=== PATIENT | male | born 1940 | race Caucasian/White ===

== ENCOUNTER 2021-12-03 15:04 | Emergency (ER) | payer MEDICARE, SELFPAY ==
[2021-12-03 15:05] VITALS: BP 102/68; PULSE 78; RESP 15; TEMP 36.4; O2SAT 98; BMI 31.4
--- NOTE | 2021-12-03 15:21 | EDS_ITS ---
HPI History of Present Illness Chief Complaint: Nosebleed Detail of Chief Complaint: Nosebleed started approximately noon today Informant: patient Narrative Narrative: Patient presents to the emergency department with complaint of a nosebleed that started approximately noon. Patient states that it spontaneously started to bleed. He is not on blood thinners. Patient states over the last several weeks he has had 2 other nosebleeds but he was able to control them on his own. Patient states that he went to urgent care today and they attempted silver nitrate cautery unsuccessful x3. Patient was referred to ER. Patient denies any trauma to his nose. Denies picking at his nose or sneezing. Prior similar symptoms: Yes PFSH PFSH Medical History no medical history Allergy/AdvReac Type Severity Reaction Status Date / Time latex Allergy Rash Verified 12/03/21 15:05 Social History Smoking Status: Unknown if ever smoked ROS ROS ED Constitutional Constitutional ED: Reports systems reviewed and no addt'l complaints, except as documented; Denies body ache(s), change in weight or chills Eyes Eyes: Denies acute decrease in peripheral vision, change in vision, double vision or loss of vision ENT ENT ED: Reports none and other Details: Nosebleed ; Denies ear pain, lip swelling, loss taste/smell, neck pain, otalgia or sore throat Cardiovascular Cardiovascular: Reports none; Denies abdominal pain, chest pain with activity, leg edema, lightheadedness, palpitations, rapid heart rate or syncope Respiratory/Chest Respiratory/Chest: Reports none; Denies change in mental status, dry cough, dyspnea, hemoptysis, shortness of breath at rest or shortness of breath with exertion Gastrointestinal Gastrointestinal: Reports none; Denies abdominal pain, change in stool character, diarrhea, hematemesis, hematochezia, melena, rectal bleeding or vomiting Genitourinary Genitourinary ED: Reports none; Denies abdominal discomfort, anuria, dysuria, genital pain or polyuria Musculoskeletal Musculoskeletal: Reports none; Denies arthralgias, back pain, difficulty walking, extremity pain, muscle weakness or myalgias Integumentary Reports none; Denies abscess or rash Neurologic Neurologic: Reports none; Denies abnormal gait, confusion, focal weakness, frequent falls, headache(s), loss of vision, numbness, paresthesias, radicular pain, vertigo or weakness Psychiatric Psychiatric: Reports systems reviewed and no addt'l complaints, except as docume nted and none; Denies behavioral changes, confusion, difficulty concentrating, hallucinations, suicidal ideation, tactile hallucinations or visual hallucinations Endocrine Endocrinology: Denies none, cold intolerance, excessive sweating, fatigue or heat intolerance Hematologic/Lymphatic Hematologic/Lymphatic: Reports none; Denies anemia, easy bleeding or easy bruising Allergic/Immunologic Allergic/Immunologic ED: Denies as per HPI, none, lip swelling, mouth swelling, throat swelling, tongue swelling or hives EXAM Physical Exam Const Vital Signs: 12/03/21 15:05 Temperature 97.6 F L Temperature Source Temporal Pulse Rate 78 Respiratory Rate 15 Blood Pressure 102/68 Blood Pressure Mean 79 Pulse Ox 98 Oxygen Delivery Method Room Air Positive well nourished and well developed General Appearance ED: well developed and NAD HEENT Reports TM's clear and moist mucous membranes HEENT Narrative: Patient presented to the emergency department with a clip on his nose. On inspection he does have some fresh blood noted in the nasal vault on the right on the floor the nasal vault. Patient has dried blood down the oropharynx and no active bleeding on oropharynx noted. I am unable to visualize exact location of the bleeding. normocephalic and atraumatic; Negative for trauma or tenderness Tympanic Membrane ED: Yes TM's clear Eyes PERRL and EOMs intact bilaterally General Eye ED: Negative for pale conjunctiva or scleral icterus Neck no lymphadenopathy, supple and no JVD General: Negative for tenderness Chest Wall inspection of chest normal and palpation of chest normal Chest: Negative for tenderness Resp normal respiratory effort and clear to auscultation bilaterally Effort and Inspection: Negative for respiratory distress or pain with movement Auscultation: Negative for rhonchi, wheezes or diminished lung sounds Cardio regular rate, regular rhythm, S1 normal heart sound, S2 normal heart sound and no murmurs Peripheral Pulses: pulses 2+ throughout GI normal to inspection, nondistended, normoactive bowel sounds, soft to palpation, non-tender, non-distended and no masses Back/Spine no CVA tenderness and no thoracic nor lumbar tenderness Extremity normal to inspection General Extremety ED: Negative for edema General Extremity: Negative for edema Neuro oriented x3, CN's II-XII intact bilaterally, no sensory deficits noted and gait normal Sensorium / Orientation: awake, alert, oriented to person, oriented to place and oriented to time Motor Exam: strength 5/5 throughout and strength abnormal Psych mental status grossly normal Skin no rashes or lesions noted and no wounds MDM MDM MDM Narrative Medical decision making narrative: Initially I placed a cotton ball dipped in Michael solution into the right nasal vault and reapplied the clip. Patient was observed for about a half an hour and then the cotton was removed. There was no active bleeding. There was a small vessel on the anterior septum that I could see that I suspect was the culprit of the bleeding. This point we discussed possibly using silver nitrate cautery however this could potentially started bleeding again and at that point patient might require more intervention such as a Rhino Rocket. At this point he was observed in the department and he ambulated without difficulty had no further bleeding and he is comfortable going home. I will refer him to ENT for follow-up. Patient advised to hold constant pressure for 20 minutes of the bleeding recurs and if it does not stop to return to the emergency department. Discharge Plan Triage Chief Complaint: Nosebleed ED Provider: Kelby Nixon Dx/Rx/DC Orders Clinical Impression: Acute anterior epistaxis Instructions: Nosebleed Primary Care Provider: [facility] Referrals: Cullen Cifuentes MD [STAFF PHYSICIAN] - 2 Days for wound check [place], [place] [Primary Care Provider] - Disposition Disposition: Home, Self Care
== END 2021-12-03 16:16 | disposition home or self-care (01) ==
PROVIDERS: Emergency Provider Emergency Medicine; Visit Provider Emergency Medicine
DX: R04.0 Epistaxis (principal)
CPT/HCPCS: 99282

== ENCOUNTER 2022-11-01 10:28 | Emergency (ER) | payer OTHER, SELFPAY ==
[2022-11-01 10:29] VITALS: BP 179/90; PULSE 118; RESP 16; TEMP 36.8; O2SAT 97; BMI 32.1
--- NOTE | 2022-11-01 10:57 | EDS_ITS ---
HPI History of Present Illness Chief Complaint: Palpitations Narrative Narrative: 82-year-old male presenting with bradycardia. He is asymptomatic of it. He states he went to have cataract surgery and when they put him on the cardiac cath lab manager they noticed that his heart rate was in the 30s. He does not have any chest pain or shortness of breath. No fevers, chills, cough. He does not feel unwell. He is not lightheaded or dizzy. He has a previous pacemaker that was done at [facility]. He believes it is [employer]. [facility] Medical History History of prostate cancer Hx of completed stroke Hx of fracture of leg Home Medications ascorbic acid (vitamin C) 500 mg tablet (Vitamin C) 11/01/22 [History Last Taken Unknown] aspirin 81 mg tablet,delayed release mg 11/01/22 [History Last Taken Unknown] atorvastatin 40 mg tablet mg 11/01/22 [History Last Taken Unknown] carvedilol 3.125 mg tablet mg 11/01/22 [History Last Taken Unknown] clopidogrel 75 mg tablet mg 11/01/22 [History Last Taken Unknown] docusate sodium 100 mg capsule mg PO 11/01/22 [History Last Taken Unknown] furosemide 20 mg tablet mg 11/01/22 [History Last Taken Unknown] lisinopril 20 mg tablet mg 11/01/22 [History Last Taken Unknown] metformin 500 mg tablet mg 11/01/22 [History Last Taken Unknown] multivitamin tab 11/01/22 [History Last Taken Unknown] omeprazole 20 mg capsule,delayed release mg 11/01/22 [History Last Taken Unknown] potassium chloride 10 mEq tablet,extended release meq PO 11/01/22 [History Last Taken Unknown] terazosin 2 mg capsule mg 11/01/22 [History Last Taken Unknown] vitamin B complex cap 11/01/22 [History Last Taken Unknown] Allergy/AdvReac Type Severity Reaction Status Date / Time latex Allergy Rash Verified 11/01/22 10:32 Surgical History History of coronary artery bypass graft x 3 Social History Smoking Status: Former smoker ROS ROS ED Constitutional Constitutional ED: Denies chills, fever(s) or sweats Eyes Eyes: Denies blurry vision or change in vision ENT ENT ED: Denies ear pain or sore throat Cardiovascular Cardiovascular: Denies chest pain, palpitations or racing heartbeat Respiratory/Chest Respiratory/Chest: Denies cough, dyspnea or sputum Gastrointestinal Gastrointestinal: Denies abdominal pain, constipation, diarrhea, nausea or vomiting Genitourinary Genitourinary ED: Denies dysuria, hematuria or urinary frequency Musculoskeletal Musculoskeletal: Denies arthralgias, myalgias or neck pain Integumentary Denies abscess, Abrasions or rash Neurologic Neurologic: Denies headache(s), paresthesias or weakness Psychiatric Psychiatric: Denies anxiety, depression, suicidal ideation or suicidal thoughts Endocrine Endocrinology: Denies polydipsia or polyuria EXAM Physical Exam Const Vital Signs: 11/01/22 10:29 11/01/22 10:45 11/01/22 11:18 Temperature 98.2 F Temperature Source Temporal Pulse Rate 118 H Respiratory Rate 16 Respiratory Pattern Normal Blood Pressure 179/90 H Blood Pressure Mean 119 Pulse Ox 97 96 Oxygen Delivery Method Room Air Room Air 11/01/22 12:01 Temperature Temperature Source Pulse Rate 74 Respiratory Rate 16 Respiratory Pattern Blood Pressure 174/93 H Blood Pressure Mean Pulse Ox 98 Oxygen Delivery Method Positive well nourished General Appearance ED: NAD; Negative for pallor HEENT Reports moist mucous membranes and dry mucous membranes Mouth ED: Yes dry mucous membranes Mouth: dry mucous membranes Eyes PERRL and EOMs intact bilaterally Neck no lymphadenopathy and supple Chest Wall inspection of chest normal and palpation of chest normal Resp normal respiratory effort and clear to auscultation bilaterally Cardio Rate: bradycardia Rhythm: abnormal rhythm irregularly irregular GI normal to inspection, nondistended, normoactive bowel sounds Back/Spine no CVA tenderness Neuro oriented x3 and CN's II-XII intact bilaterally Sensorium / Orientation: alert Psych mental status grossly normal Skin no rashes or lesions noted and no wounds General Skin Exam: Negative for jaundice or pallor MDM MDM MDM Narrative Medical decision making narrative: Patient presenting with bradycardia. He is asymptomatic. His EKG on my interpretation shows a paced rhythm at a rate of 74 bpm with frequent PVCs. His pulse is irregular and bradycardic estimated to be between 50 to 60 bpm. Sally ki's device was interrogated by [employer]. I received a call from [employer] stating that his device was functioning completely normally. They stated that because of his pacing in the left ventricle this would make the monitor look abnormal. He stated that he did have a lot of PVCs as well. CBC, BMP unremarkable. High-sensitivity troponin is 21. Electrolytes within normal limits. Chest x-ray on my interpretation shows no acute cardiopulmonary process and radiology interprets this and agrees. Given his ultimately normal work-up and he is symptom-free I think he stable for discharge at this time. 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 Return precautions discussed. Impression: 1. History of pacemaker placement Lab Data Attestation: I reviewed the patient's lab results. Labs: Laboratory Results - last 24 hr 11/01/22 11/01/22 11:20 11:20 WBC 7.7 RBC 4.69 Hgb 14.1 Hct 43.4 MCV 92.5 MCH 30.1 MCHC 32.5 RDW Std Deviation 44.4 H RDW Coeff of Bulmaro 13.1 Plt Count 151 MPV 10.4 Immature Gran % (Auto) 0.400 Neut % (Auto) 56.1 Lymph % (Auto) 33.1 [place] % (Auto) 8.2 Eos % (Auto) 1.7 Baso % (Auto) 0.5 Absolute Neuts (auto) 4.3 Absolute Lymphs (auto) 2.53 Nucleated RBC % 0 Sodium 143 Potassium 4.0 Chloride 110 H Carbon Dioxide 31.0 Anion Gap 2 L BUN 19 H Creatinine 1.05 Estim Creat Clear Calc 57.77 Est GFR (MDRD) Af Amer 87 Est GFR (MDRD) Non-Af 72 BUN/Creatinine Ratio 18.1 Glucose 127 H Calcium 8.8 Magnesium 2.0 Troponin I High Sens 21 Radiography Diagnostic Testing: Clinical Impression(s) from Imaging Studies Chest X-Ray 11/01/22 10:59 IMPRESSION: Poor inspiration with some bibasilar atelectasis. Electronically Signed: Shailesh Ortega MD at 11:45 EST , Discharge Plan Triage Chief Complaint: Palpitations ED Provider: Kristian Issa Dx/Rx/DC Orders Instructions: ED Palpitations Prescriptions: No Action atorvastatin 40 mg tablet metformin 500 mg tablet lisinopril 20 mg tablet potassium chloride 10 mEq tablet extended release PO clopidogrel 75 mg tablet carvedilol 3.125 mg tablet ascorbic acid (vitamin C) [Vitamin C] 500 mg tablet terazosin 2 mg capsule omeprazole 20 mg capsule,delayed release(DR/EC) furosemide 20 mg tablet multivitamin Tablet aspirin 81 mg tablet,delayed release (DR/EC) Label Comments: Take 1 by mouth once a day docusate sodium 100 mg capsule PO vitamin B complex Capsule [facility] Referrals[facility] [Primary Care Provider] - Disposition Disposition: Home, Self Care Discharge Date/Time: 11/01/22 12:08
--- NOTE | 2022-11-01 10:59 | EKG12_ITS ---
Test Reason : ABNL RYTHUM Blood Pressure : / mmHG Vent. Rate : 074 BPM Atrial Rate : 063 BPM P-R Int : 196 ms QRS Dur : 100 ms QT Int : 446 ms P-R-T Axes : 024 -30 113 degrees QTc Int : 495 ms AV dual-paced rhythm with frequent Premature ventricular complexes Abnormal ECG Confirmed by OLIMPIA BABB, VANE ([id number]), market editor MAYA CHAIDEZ ([id number]) on 11/04/2022 1:02:40 PM Referred By: DEIRDRE Confirmed By:VANE DOAN MD
--- NOTE | 2022-11-01 10:59 | RAD_ITS ---
STUDY: X-RAY CHEST REASON FOR EXAM: Male, 82 years old. chest pain TECHNIQUE: Single AP portable view of the chest. COMPARISON: None. FINDINGS: Left subclavian AICD. Status post coronary artery bypass grafting. Poor inspiration with some bibasilar atelectasis. There is no demonstrated pleural abnormality. There is moderate cardiac enlargement. Normal mediastinum and joann. Normal visualized pulmonary arteries. Normal visualized aortic arch and descending thoracic aorta. Normal visualized thoracic spine. Normal visualized ribs, clavicles, and shoulders. There is no demonstrated abnormality of the visualized soft tissue structures of the upper abdomen. RAD/Chest 1 View (Portable) IMPRESSION: Poor inspiration with some bibasilar atelectasis. Electronically Signed: Shailesh Ortega MD at 11:45 EST ,
[2022-11-01 11:18] VITALS: O2SAT 96
[2022-11-01 11:25] LABS: Absolute Lymphocyte Count 2.53 X10^3/uL (0.83-4.51); Absolute Neutrophil Count 4.3 X10^3/uL (2.0-7.7); Basophil# 0.04 X10^3/uL; Basophil% 0.5 % (0-1); Eosinophil# 0.13 X10^3/uL; Eosinophils% 1.7 % (0-5); Hematocrit 43.4 % (40-54); Hemoglobin 14.1 g/dL (13.0-16.5); Lymphocyte # 2.53 X10^3/ul (0.83-4.51); Lymphocyte % 33.1 % (19-41); Mean Corp Hgb Conc 32.5 g/dL (32-36); Mean Corpuscular Hgb 30.1 pg (27.0-32.0); Mean Corpuscular Volume 92.5 fL (80-94); Mean Platelet Vol. 10.4 fl (6.2-12.0); Monocyte# 0.63 X10^3/uL; Monocyte% 8.2 % (0-10); NRBC Flagged by Analyzer 0 % (0-5); Neutrophil # 4.29 X10^3/uL (2.7-7.7); Neutrophil % 56.1 % (47-70); Platelet Count 151 K/mm3 (150-450); RBC Distribution Width CV 13.1 % (11.6-14.6); RBC Distribution Width SD 44.4 fl (35.1-43.9); Red Blood Count 4.69 M/mm3 (4.6-6.2); White Blood Count 7.7 K/mm3 (4.4-11.0)
[2022-11-01 11:45] LABS: Anion Gap 2 (5-15); BUN 19 mg/dL (7-18); BUN/Creat Ratio 18.1 RATIO (10-20); Calcium,Total 8.8 mg/dL (8.5-10.1); Chloride 110 mmol/L (98-107); Creatinine, Serum 1.05 mg/dL (0.70-1.30); EST Glomerular Filtration Rate 72 mL/min (>60); Est Glom Filt Rate - Afr Amer 87 mL/min (>60); Estimated Creatinine Clearance 57.77 ml/min; Glucose 127 mg/dL (74-106); Sodium Level 143 mmol/L (136-145); Troponin-I HS 21 pg/mL (3.0-78.0)
[2022-11-01 12:01] VITALS: BP 174/93; PULSE 74; RESP 16; O2SAT 98
== END 2022-11-01 12:08 | disposition home or self-care (01) ==
PROVIDERS: Emergency Provider Student in an Organized Health Care Education/Training Program; Visit Provider Student in an Organized Health Care Education/Training Program
DX: I49.3 Ventricular premature depolarization (principal); Z79.82 Long term (current) use of aspirin; Z79.02 Long term (current) use of antithrombotics/antiplatelets; Z79.899 Other long term (current) drug therapy; Z79.84 Long term (current) use of oral hypoglycemic drugs; Z87.891 Personal history of nicotine dependence; Z95.0 Presence of cardiac pacemaker; Z85.46 Personal history of malignant neoplasm of prostate
CPT/HCPCS: 71045; 80048; 83735; 84484; 85025; 93005; 99284

== ENCOUNTER 2024-12-10 14:23 | Emergency (ER) | payer OTHER, SELFPAY ==
[2024-12-10 14:24] VITALS: BP 195/102; PULSE 95; RESP 20; TEMP 36.1; O2SAT 95; BMI 32.0
[2024-12-10 14:25] VITALS: BP 195/102; PULSE 95; RESP 20; TEMP 36.1; O2SAT 95
--- NOTE | 2024-12-10 15:00 | ED.RN ---
PT STATES HE IS PEEING BLOOD, LARGE AMOUNT, IN HIS URINE, PT STATES THIS HAPPENED A FEW WEEKS AGO AND THEN QUIT AFTER A DAY OR SO. PT HAS HX OF PROSTATE CANCER. DENIES ANY PAIN AT THIS TIME.
--- NOTE | 2024-12-10 15:02 | ED.RN ---
PT UNABLE TO REMEBER HIS MEDICATION NAMES AND DOSES. PT STATES HE HAD A COPY ON HIS COMPUTER BUT DOES NOT KNOW WHERE IT IS.
--- NOTE | 2024-12-10 15:14 | EX.ED.DYSGE1 ---
HPI History of Present Illness Chief Complaint: Complaint [facility] Medical History History of prostate cancer Hx of completed stroke Hx of fracture of leg Home Medications ?Medication ?Instructions ?Recorded ?Last Taken ?Type ascorbic acid (vitamin C) 500 mg 11/01/22 Unknown History tablet (Vitamin C) aspirin 81 mg tablet,delayed mg 11/01/22 Unknown History release atorvastatin 40 mg tablet mg 11/01/22 Unknown History carvedilol 3.125 mg tablet mg 11/01/22 Unknown History clopidogrel 75 mg tablet mg 11/01/22 Unknown History docusate sodium 100 mg capsule mg PO 11/01/22 Unknown History furosemide 20 mg tablet mg 11/01/22 Unknown History lisinopril 20 mg tablet mg 11/01/22 Unknown History metformin 500 mg tablet mg 11/01/22 Unknown History multivitamin tab 11/01/22 Unknown History omeprazole 20 mg capsule,delayed mg 11/01/22 Unknown History release potassium chloride 10 mEq meq PO 11/01/22 Unknown History tablet,extended release terazosin 2 mg capsule mg 11/01/22 Unknown History vitamin B complex cap 11/01/22 Unknown History Allergy/AdvReac Type Severity Reaction Status Date / Time latex Allergy Rash Verified 12/10/24 15:01 Surgical History History of coronary artery bypass graft x 3 Social History Smoking Status: Former smoker EXAM Physical Exam Const Vital Signs: 12/10/24 14:24 12/10/24 14:25 12/10/24 15:25 Temperature 97 F L 97 F L 98.3 F Temperature Source Temporal Temporal Oral Pulse Rate 95 95 64 Respiratory Rate 20 H 20 H 17 Blood Pressure 195/102 H 195/102 H 112/86 H Blood Pressure Mean 133 133 94 Pulse Ox 95 95 96 Oxygen Delivery Method Room Air Room Air Room Air 12/10/24 16:00 12/10/24 16:23 Temperature 97.9 F Temperature Source Oral Pulse Rate 68 60 Respiratory Rate 16 17 Blood Pressure 142/89 H 137/74 H Blood Pressure Mean 106 95 Pulse Ox 96 96 Oxygen Delivery Method Room Air Room Air MDM MDM MDM Narrative Medical decision making narrative: HISTORY OF PRESENT ILLNESS: 84-year-old male presents with concern for hematuria. Notes this has been ongoing since night. States he is on a blood thinner but is unsure which one. REVIEW OF SYSTEMS: Pertinent positives: Hematuria Pertinent negatives: fatigue, dizziness, urinary retention PHYSICAL EXAM: Nursing triage notes reviewed, Vital signs reviewed Constitutional: please see mdm HENT: MMM, no mucosal pallor Eyes: Pupils equal round and reactive to light, Extraocular muscles intact Neck: No stridor, no JVD, full neck ROM Lungs: Clear to auscultation, No wheezing or rales. No increased work of breathing, no conversational dyspnea, no accessory muscle use, no nasal flaring. No respiratory distress noted Heart: Regular rate and rhythm, No murmurs, No rubs and No gallops, 2+ distal pulses (radial, femoral, posterior tibial) in all extremities Abdomen: Soft, there is no tenderness, rigidity, rebound or guarding, no obvious peritoneal signs, no palpable pulsatile abdominal masses, no auscultated abdominal bruit : No CVAT Extremities: No edema Neuro: No new focal neurological deficits, cranial nerves II through XII intact, 5/5 strength in all present extremities. Intact sensation to light touch in all present extremities, 2+ reflexes bilateral patella tendons. Skin: No rash or lesions noted, no pallor noted MEDICAL DECISION MAKING: Chief Complaint: Hematuria External records reviewed: [Reviewed medications which showed the patient on aspirin and Plavix Factors affecting care: Hypertension, type 2 diabetes, GERD Social determinants of health: none History obtained from others: none Consults: none [facility] Narrative: Patient was hypertensive, tachypneic, afebrile, exam unremarkable. I considered the following differential diagnosis: UTI, anemia, urinary retention ALL IMAGES (IF OBTAINED) HAVE BEEN PERSONALLY REVIEWED AND INTERPRETED BY MYSELF. CBC with no leukocytosis, no anemia, thrombocytopenia BMP without evidence of significant electrolyte abnormalities, no anion gap, no acute kidney injury. Urinalysis with hematuria, other signs of inflammation but no obvious bacterial infection. Will hold off antibiotics at this time as the patient does not have any clinical symptoms (dysuria, frequency, urgency). Will send urine for culture On reevaluation the patient's vital signs improved to a blood pressure 137/74, respirate 17 Patient has no sign of urinary retention, significant kidney damage, significant anemia. No indication for admission or emergent urologic consultation. Will give prompt outpatient urology follow-up and give strict return precautions including for signs of anemia, urinary retention etc. The patient and/or family, caregivers express understanding. The patient and/or family, caregivers agrees with the plan. Shared decision making: I will have a discussion with the patient and or visitors regarding risk/benefits of further testing or admission. They will be made aware of of the risk/benefits inherent in this decision they will be given the opportunity to voice understanding. Total critical care time today provided was at least 0 minutes. This excludes separately billable procedures. Critical care time (if documented) is secondary to the patient having high probability of clinically significant/life threatening deterioration in the patient's condition which required my urgent intervention. Impression: 1. Hematuria 2. History of prostate cancer Dispo: Discharge home This note was generated with [employer] dictation software. It may contain incorrect words, spelling, and punctuation that were not noted in review of the chart prior to signing. Lab Data Labs: Laboratory Results - last 24 hr 12/10/24 12/10/24 15:49 15:50 WBC 7.1 RBC 4.63 Hgb 14.0 Hct 42.8 MCV 92.4 MCH 30.2 MCHC 32.7 RDW Std Deviation 44.8 H RDW Coeff of Bulmaro 13.2 Plt Count 158 MPV 10.4 Immature Gran % (Auto) 0.100 Neut % (Auto) 59.1 Lymph % (Auto) 31.3 [place] % (Auto) 6.9 Eos % (Auto) 2.0 Baso % (Auto) 0.6 Absolute Neuts (auto) 4.2 Absolute Lymphs (auto) 2.21 Nucleated RBC % 0 Sodium 142 Potassium 3.9 Chloride 110 H Carbon Dioxide 27.0 Anion Gap 5 BUN 16 Creatinine 0.97 Estim Creat Clear Calc 69.65 Est GFR (MDRD) Af Amer 95 Est GFR (MDRD) Non-Af 78 BUN/Creatinine Ratio 16.5 Glucose 145 H Calcium 9.3 Urine Color Red Urine Clarity Turbid Urine pH 6.5 Ur Specific Dawn 1.015 Urine Protein 500 H Urine Glucose (UA) Normal Urine Ketones 15 H Urine Occult Blood 250 H Urine Nitrite Negative Urine Bilirubin 1 H Urine Urobilinogen Normal Ur Leukocyte Esterase 100 H Urine RBC > 100 SEEN Urine WBC 5-10 SEEN Ur Squamous Epith Cells 0 SEEN Urine Bacteria 1+ RBC Casts 0-5 SEEN Urine Mucus 0 SEEN Discharge Plan Triage Chief Complaint: Complaint ED Provider: Hesham Lazar Dx/Rx/DC Orders Instructions: ED Hematuria Prescriptions: No Action atorvastatin 40 mg tablet metformin 500 mg tablet lisinopril 20 mg tablet potassium chloride 10 mEq tablet extended release PO clopidogrel 75 mg tablet carvedilol 3.125 mg tablet ascorbic acid (vitamin C) [Vitamin C] 500 mg tablet terazosin 2 mg capsule omeprazole 20 mg capsule,delayed release(DR/EC) furosemide 20 mg tablet multivitamin Tablet aspirin 81 mg tablet,delayed release (DR/EC) Patient Comments: Take 1 by mouth once a day docusate sodium 100 mg capsule PO vitamin B complex Capsule [facility] Referrals: Preston Baird MD [Med Staff - Active Staff] - Activity Restrictions/Additional Instructions: Thank you for trusting us with your care today! Your labs are reassuring. Specifically no sign of anemia or kidney damage. Please take Tylenol (2 pills, 650 mg), ibuprofen (2 pills, 400 mg) every 6 hours as needed for pain and fever control. Please return to the emergency department if your symptoms change or worsen. Specifically develop urinary retention (not urinated for 6 to 12 hours) Please follow with Urology (Dr. Baird) for further outpatient evaluation and management. Print Language: [place] Disposition Disposition: Home, Self Care
[2024-12-10 15:25] VITALS: BP 112/86; PULSE 64; RESP 17; TEMP 36.8; O2SAT 96
--- NOTE | 2024-12-10 15:40 | EKG12_ITS ---
Test Reason : Blood Pressure : */* mmHG Vent. Rate : 64 BPM Atrial Rate : 64 BPM P-R Int : 196 ms QRS Dur : 106 ms QT Int : 454 ms P-R-T Axes : 4 -33 109 degrees QTcB Int : 468 ms AV dual-paced rhythm Abnormal ECG Confirmed by TYRELL BABB, FABRICIO ([id number]), editorial writer BARBI CORRALES ([id number]) on 12/14/2024 6:08:02 AM Referred By: Confirmed By: FABRICIO SANTILLAN MD
[2024-12-10 15:59] LABS: Mucous, Urine 0 SEEN /hpf (<or=2+); Squamous Epithelial Cells - UA 0 SEEN /hpf (0-5)
[2024-12-10 16:00] VITALS: BP 142/89; PULSE 68; RESP 16; TEMP 36.6; O2SAT 96
[2024-12-10 16:02] LABS: Color, Urine Red (Yellow); Glucose, Dipstick Normal (Normal); Ketone-Dipstick 15 mg/dl (Negative); Leukocyte Esterase-Dipstick 100 /ul (Negative); Nitrite-Dipstick Negative (Negative); Occult Blood-Urine 250 /ul (Negative); Protein-Dipstick 500 mg/dl (Negative); Specific Gravity, Urine 1.015 (1.002-1.030); Urine Clarity Turbid (Clear); Urine Urobilinogen Normal (Normal); Urine pH 6.5 (5.0 - 8.0)
[2024-12-10 16:10] LABS: Urine Bilirubin Dipstick 1 mg/dL (Negative)
[2024-12-10 16:14] LABS: Bacteria 1+ /hpf (None Seen); Red Blood Cells-Urine > 100 SEEN /hpf (0-5); Red Cell Cast 0-5 SEEN /lpf (None Seen); White Blood Cells 5-10 SEEN /hpf (0-5)
[2024-12-10 16:16] LABS: Absolute Lymphocyte Count 2.21 X10^3/uL (0.83-4.51); Absolute Neutrophil Count 4.2 X10^3/uL (2.0-7.7); Basophil# 0.04 X10^3/uL; Basophil% 0.6 % (0-1); Eosinophil# 0.14 X10^3/uL; Hematocrit 42.8 % (40-54); Lymphocyte # 2.21 X10^3/ul (0.83-4.51); Lymphocyte % 31.3 % (19-41); Mean Corp Hgb Conc 32.7 g/dL (32-36); Mean Corpuscular Hgb 30.2 pg (27.0-32.0); Mean Corpuscular Volume 92.4 fL (80-94); Mean Platelet Vol. 10.4 fl (6.2-12.0); Monocyte# 0.49 X10^3/uL; Monocyte% 6.9 % (0-10); NRBC Flagged by Analyzer 0 % (0-5); Neutrophil # 4.17 X10^3/uL (2.7-7.7); Neutrophil % 59.1 % (47-70); Platelet Count 158 K/mm3 (150-450); RBC Distribution Width CV 13.2 % (11.6-14.6); RBC Distribution Width SD 44.8 fl (35.1-43.9); Red Blood Count 4.63 M/mm3 (4.6-6.2); White Blood Count 7.1 K/mm3 (4.4-11.0)
[2024-12-10 16:23] VITALS: BP 137/74; PULSE 60; RESP 17; O2SAT 96
[2024-12-10 16:33] LABS: Anion Gap 5 (5-15); BUN 16 mg/dL (7-18); BUN/Creat Ratio 16.5 RATIO (10-20); Calcium,Total 9.3 mg/dL (8.5-10.1); Chloride 110 mmol/L (98-107); Creatinine, Serum 0.97 mg/dL (0.70-1.30); EST Glomerular Filtration Rate 78 mL/min (>60); Est Glom Filt Rate - Afr Amer 95 mL/min (>60); Estimated Creatinine Clearance 69.65 ml/min; Glucose 145 mg/dL (74-106); Potassium 3.9 mmol/L (3.5-5.1); Sodium Level 142 mmol/L (136-145)
[2024-12-10 17:05] VITALS: BP 144/75; PULSE 61; RESP 18; TEMP 36.8; O2SAT 97
== END 2024-12-10 17:09 | disposition home or self-care (01) ==
PROVIDERS: Emergency Provider Emergency Medicine; Visit Provider Emergency Medicine
DX: R31.9 Hematuria, unspecified (principal); E11.9 Type 2 diabetes mellitus without complications; K21.9 Gastro-esophageal reflux disease without esophagitis; Z87.891 Personal history of nicotine dependence; I10 Essential (primary) hypertension; Z85.46 Personal history of malignant neoplasm of prostate; Z79.82 Long term (current) use of aspirin; Z79.899 Other long term (current) drug therapy
CPT/HCPCS: 80048; 81001; 85025; 87086; 87088; 93005; 99284; A4216

== ENCOUNTER → 2024-12-16 | Outpatient (CLI) | payer OTHER, SELFPAY ==
[2024-12-16 16:37] LABS: Hematocrit 44.2 % (40-54); Hemoglobin 14.7 g/dL (13.0-16.5); Mean Corp Hgb Conc 33.3 g/dL (32-36); Mean Corpuscular Hgb 30.8 pg (27.0-32.0); Mean Corpuscular Volume 92.5 fL (80-94); Mean Platelet Vol. 10.6 fl (6.2-12.0); Platelet Count 178 K/mm3 (150-450); RBC Distribution Width CV 13.2 % (11.6-14.6); RBC Distribution Width SD 44.7 fl (35.1-43.9); Red Blood Count 4.78 M/mm3 (4.6-6.2); White Blood Count 9.2 K/mm3 (4.4-11.0)
[2024-12-16 17:07] LABS: Anion Gap 4 (5-15); BUN 17 mg/dL (7-18); Calcium,Total 9.5 mg/dL (8.5-10.1); Chloride 108 mmol/L (98-107); Creatinine, Serum 1.13 mg/dL (0.70-1.30); EST Glomerular Filtration Rate 66 mL/min (>60); Est Glom Filt Rate - Afr Amer 79 mL/min (>60); Glucose 107 mg/dL (74-106); PSA,Total- Diagnostic 2.46 ng/mL (0.0-4.0); Potassium 3.8 mmol/L (3.5-5.1); Sodium Level 141 mmol/L (136-145)
== END | disposition home or self-care (01) ==
LOC: LAB 15:34
PROVIDERS: Referring Provider Urology; Visit Provider Urology
DX: C61 Malignant neoplasm of prostate (principal)
CPT/HCPCS: 36415; 80048; 84153; 85027

== ENCOUNTER → 2025-01-03 | Outpatient (CLI) | payer MEDICARE, SELFPAY ==
--- NOTE | 2025-01-03 17:50 | CT_ITS ---
PROCEDURE: CT ABD/PELVIS W/WO CONTRAST REASON FOR EXAM: 84-year-old male, newly diagnosed prostate cancer. TECHNIQUE: Abdomen and pelvis CT with intravenous contrast. No oral contrast. IV CONTRAST: [id number] COMPARISON: None. FINDINGS: Lung bases: Prior median sternotomy and partially visualized pacer wires. Mild dependent atelectasis. Liver: The liver is normal in size without focal hepatic mass. No biliary ductal dilation. Gallbladder: No radiopaque stones within the gallbladder. Spleen: Unremarkable. Pancreas: Unremarkable. Adrenals: Mild symmetric thickening of the bilateral adrenal glands. Kidneys: Bilateral renal cysts. Contrast opacifies the bilateral renal collecting systems and urinary bladder. No hydronephrosis. Bladder: Mildly distended. Reproductive Organs: Enlarged, lobular prostate compatible with reported prostate cancer. Bowel: The bowel loops are normal in caliber. No ascites or pneumoperitoneum. Prior appendectomy. Lymph nodes: No suspicious lymph node enlargement. Vasculature: Ectasia of the infrarenal abdominal aorta with severe atherosclerotic plaque throughout the aortoiliac vessels. Inward displacement of intimal calcifications at the level of the juxtarenal abdominal aorta, most compatible with contained chronic dissection. Bones: Thoracolumbar spondylosis. Partially visualized prior right femur intramedullary adrienne fixation. CT/CT Abd/Pelvis W/WO Contrast IMPRESSION: 1. No CT evidence of abdominopelvic metastatic disease. 2. Enlarged, lobular prostate compatible with reported prostate cancer. 3. 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 Correlatio n with prior imaging to evaluate for stability is recommended. 4. Severe atherosclerotic plaque throughout the aortoiliac vessels. One or more dose reduction techniques were used (e.g., Automated exposure contr ol, adjustment of the mA and/or kV according to patient size, use of iterative reconstruction technique). Reading Location: [id number]
== END | disposition home or self-care (01) ==
PROVIDERS: Referring Provider Urology; Visit Provider Urology
DX: C61 Malignant neoplasm of prostate (principal); R31.0 Gross hematuria
CPT/HCPCS: 74178; Q9967